=== PATIENT | male | born 1970 | race Caucasian/White ===

== ENCOUNTER 2022-02-01 10:40 | Inpatient (IN) | payer MEDICAID, SELFPAY ==
[2022-02-01] VITALS (11 sets, daily range): BP systolic 103–132; BP diastolic 57–78; PULSE 68–109; RESP 13–22; TEMP 36.1–36.6; O2SAT 97–100; BMI 21.4
--- NOTE | ~2022-02-01 | CT_ITS ---
EXAMINATION: CT brain wo con DATE: 02/01/2022 11:07 INDICATION: Seizure. TECHNIQUE: Computed tomography (CT) of the head was performed without intravenous contrast. The mA wa s adjusted according to patient size. Iterative reconstruction technique was employed. The dose-lengt h product was 605.33 mGy-cm. COMPARISON: None FINDINGS: There is an old infarct in left thalamus. There is an old infarct involving left frontal lo be and left insula. There is no intracranial hemorrhage, acute infarction, or abnormal intracranial m ass lesion. The ventricles are normal in size. There is mucosal thickening in the paranasal sinuses. The mastoid air cells are normal. The orbits are normal. IMPRESSION: 1. Old infarcts involving the left thalamus, left frontal lobe, and left insula. Reviewed, dictated and finalized at location A. IMPRESSION: 1. Old infarcts involving the left thalamus, left frontal lobe, and left insula .
--- NOTE | ~2022-02-01 | XR_ITS ---
EXAMINATION: XR chest 2V DATE: 02/01/2022 11:10 INDICATION: Seizure. TECHNIQUE: Frontal and lateral views of the chest were obtained. COMPARISON: None. FINDINGS: A calcified right lung nodule is consistent with old granulomatous disease. There are lucen cies at the lung apices, consistent with emphysema. There is mild scarring at the lung apices. No ple ural effusion or pneumothorax. The heart size is normal. There are changes of aortic valve replacemen t. IMPRESSION: 1. Emphysema. Reviewed, dictated and finalized at location A. IMPRESSION: 1. Emphysema.
--- NOTE | ~2022-02-01 | CT_ITS ---
EXAMINATION: CTA chest PE protocol DATE: 02/01/2022 12:37 INDICATION: New onset seizure TECHNIQUE: Computed tomography angiography (CTA) of the chest was performed with 100 mL Omnipaque-350 intravenous contrast timed to evaluate the pulmonary arteries. Coronal maximum intensity projection 3D-reconstructions were created by the technologist. The dose-length product (DLP) was 204.53 mGy-cm. Automated exposure control and iterative reconstruction technique were employed. COMPARISON: None. FINDINGS: The pulmonary arteries are well-opacified. No pulmonary embolism is identified. Respiratory motion slightly limits evaluation in the lower lung zones. There are changes of aortic valve replace ment. The heart size is normal. There is fusiform enlargement of the ascending aorta which measures 3 .9 cm at the level of the main pulmonary artery. No pleural effusion or pneumothorax. The lungs are f ree of acute opacities. IMPRESSION: 1. No pulmonary embolism or acute cardiopulmonary abnormality. Reviewed, dictated and finalized at location B.
--- NOTE | 2022-02-01 10:49 | ECG_ITS ---
Measurements Intervals [place] Rate: 97 P: 73 NM: 144 QRS: -29 QRSD: 86 T: 72 QT: 353 QTc: 449 Interpretive Statements SINUS RHYTHM POSSIBLE LEFT ATRIAL ENLARGEMENT RSR' IN V1 OR V2, PROBABLY NORMAL VARIANT INFERIOR INFARCT, AGE INDETERMINATE ABNORMAL ECG NO PREVIOUS ECG AVAILABLE FOR COMPARISON Electronically Signed On 02-01-2022 12:38:20 CDT by Akbar Monsivais D.O.
--- NOTE | 2022-02-01 10:53 | ED.SEIZURE ---
HPI - Seizure General Chief Complaint: Seizure Stated Complaint: ?seizure like activity Time Seen by Provider: 02/01/22 10:41 History of Present Illness HPI Narrative: 51-year-old male history of schizophrenia and medication noncompliance presents to the emergency room for evaluation of a new onset seizure. Patient was brought to the ER via EMS. On presentation, patient was alert and oriented x3. States that he was uncertain as to how he ended up in the library. Patient is also accompanied by a family. Family states the patient has a schizophrenia, with, and a delusion that the [place] cartel is out to get him. Family also states patient is homeless and will occasionally sleep in the library during the day. Patient denies any known drug or alcohol use. Patient and family does endorse a cardiac history, but it is unknown at this time what the condition is. Related Data Allergies Allergy/AdvReac Type Severity Reaction Status Date / Time No Known Allergies Allergy Verified 02/01/22 10:52 Review of Systems Review of Systems: CONSTITUTIONAL: Denies fever, chills, or sweats. EYES: Denies visual changes, redness, or discharge. ENT: Denies rhinorrhea, congestion, sore throat, or otalgia. CARDIOVASCULAR: Denies chest pain, palpitations, or edema. RESPIRATORY: Denies cough or dyspnea. GASTROINTESTINAL: Denies abdominal pain, nausea, vomiting, or diarrhea. GENITOURINARY: Denies dysuria or hematuria. SKIN: Denies rash or itching. MUSCULOSKELETAL: Denies back pain, joint pain, or myalgia. NEUROLOGIC: Denies headache, numbness, dizziness, or weakness. PSYCHIATRIC: Denies anxiety or depression. Exam Narrative: GENERAL: Well-appearing, well-nourished, no physical limitations, and in no acute distress. HEAD: Normocephalic, atraumatic. EYES: Conjunctivae normal, PERRLA and EOMI. CHEST: Clear to auscultation. No respiratory distress. No wheezes rales or rhonchi. No tenderness. HEART: Tachycardic and regular rhythm. No murmur heard. Normal peripheral pulses. ABDOMEN: Soft, nontender, nondistended, normal active bowel sounds. EXTREMITIES: Normal range of motion. No edema. No clubbing or cyanosis SKIN: Warm, dry, no rash. No noted wounds NEURO: No focal deficits. Alert and oriented x3. MAEW. CN's II-XI intact bilaterally, normal gait PSYCH: Cooperative. Normal mood and affect. Course Course Emergency Course: 1315: Case with Dr. Keita. He wants patient admitted to medical bed observation for an EEG. Vital Signs Vital signs: Vital Signs Temperature 36.6 C 02/01/22 10:46 Pulse Rate 104 H 02/01/22 10:46 Respiratory Rate 15 02/01/22 10:46 Blood Pressure 124/78 02/01/22 10:46 Pulse Oximetry 100 02/01/22 10:46 Temperature 36.6 C 02/01/22 10:46 Pulse Rate 68 02/01/22 13:23 Respiratory Rate 13 02/01/22 13:23 Blood Pressure 120/63 02/01/22 13:23 Pulse Oximetry 100 02/01/22 13:23 MDM - Seizure Lab Data Result diagrams: 02/01/22 10:57 02/01/22 10:57 Labs: Lab Results 02/01/22 02/01/22 02/01/22 Range/Units 10:57 10:57 10:57 WBC 6.2 (4.5-10.0) K/mm3 RBC 4.98 (4.6-6.20) M/mm3 Hgb 14.9 (14.0-18.0) g/dL Hct 44.7 (42.0-52.0) % MCV 89.8 (80-100) fl MCH 29.9 (26-34) pg MCHC 33.3 (32-36) g/dl RDW 13.2 (11.5-14.5) % Plt Count 250 (150-375) k/mm3 MPV 9.9 (7.4-10.4) fl Immature Gran % (Auto) 0.2 (0-0.5) % Neut % (Auto) 59.7 (45.5-73.1) % Lymph % (Auto) 28.2 (18.3-44.2) % [place] % (Auto) 7.4 (2.6-8.5) % Eos % (Auto) 3.4 (0-4.4) % Baso % (Auto) 1.1 (0.2-1.2) % Lymph # (Auto) 1.76 (0.9-3.2) K/mm3 [place] # (Auto) 0.5 (0.1-0.6) K/mm3 Eos # (Auto) 0.2 (0-0.3) K/mm3 Baso # (Auto) 0.1 (0.0-0.1) K/mm3 Abs Immat Gran (auto) 0.01 (0.00-0.031) K/mm3 Absolute Neuts (auto) 3.7 (1.3-6.7) K/mm3 Absolute Nucleated RBC 0.0 (0.0-0.012) K/mm3 Nucleated RBC % 0.0 (0.0-0.2) %
[2022-02-01 11:11] LABS: Basophils Absolute Auto 0.1 K/mm3 (0.0-0.1); Basophils Percent Auto 1.1 % (0.2-1.2); Eosinophils Absolute Auto 0.2 K/mm3 (0-0.3); Eosinophils Percent Auto 3.4 % (0-4.4); Hematocrit 44.7 % (42.0-52.0); Hemoglobin 14.9 g/dL (14.0-18.0); Immature Granulocyte Absolute 0.01 K/mm3 (0.00-0.031); Immature Granulocyte Percent A 0.2 % (0-0.5); Lymphocytes Absolute Auto 1.76 K/mm3 (0.9-3.2); Lymphocytes Percent Auto 28.2 % (18.3-44.2); Mean Corpuscular HGB Conc 33.3 g/dl (32-36); Mean Corpuscular Hemoglobin 29.9 pg (26-34); Mean Corpuscular Volume 89.8 fl (80-100); Mean Platelet Volume 9.9 fl (7.4-10.4); Monocytes Absolute Auto 0.5 K/mm3 (0.1-0.6); Monocytes Percent Auto 7.4 % (2.6-8.5); Neutrophils Absolute Auto 3.7 K/mm3 (1.3-6.7); Neutrophils Percent Auto 59.7 % (45.5-73.1); Platelet Count Result 250 k/mm3 (150-375); Red Blood Count 4.98 M/mm3 (4.6-6.20); Red Cell Distribution Width 13.2 % (11.5-14.5); White Blood Count 6.2 K/mm3 (4.5-10.0)
[2022-02-01] MEDS: SODIUM CHLORIDE 0.9% IV 1,000 ML 999 ML IV CONT (11:18)
[2022-02-01] MEDS: LORazepam INJ (*CRX) 2 MG/ML VIAL 0.5 MG IV PUSH (11:18)
[2022-02-01 11:25] LABS: Prothrombin Time 13.2 Seconds (11.1-14.7)
[2022-02-01 11:26] LABS: Partial Thromboplastin Time 24.9 SECONDS (22.3-36.8)
[2022-02-01 11:35] LABS: D Dimer 0.69 ug/mL (<0.48)
[2022-02-01 11:52] LABS: Acetaminophen < 10 ug/mL (10-30); Ethanol < 10 mg/dL (<10); Salicylate < 1.0 mg/dL (2-20)
[2022-02-01 12:04] LABS: Troponin I 0.013 ng/mL (0.000-0.034)
[2022-02-01 12:15] LABS: Albumin Level 4.8 g/dL (3.5-5.1); Alkaline Phosphatase 45 U/L (38-126); Anion Gap 23 mmol/L (8-16); Aspartate Amino Transferase 35 U/L (17-59); Bilirubin,Total 0.5 mg/dL (0.2-1.3); Blood Urea Nitrogen 7 mg/dL (9-20); Calcium 9.4 mg/dL (8.4-10.2); Carbon Dioxide 14 mmol/L (22-30); Chloride 104 mmol/L (98-107); Estimated CRCL calculation 59 ml/min; Estimated Glomerular Filt Rate 59; Glucose 143 mg/dL (65-110); Potassium 4.8 mmol/L (3.4-5.0); Sodium 141 mmol/L (137-145)
[2022-02-01 12:43] LABS: Appearance Urine Clear (Clear); Bilirubin Urine Negative (Negative); Blood Urine Negative (Negative); Color Urine Yellow (Yellow); Glucose Urine UA Negative (Negative); Ketones Urine Negative (Negative); Leukocyte Esterase Ur Negative LEU/UL (Negative); Nitrate Urine Negative (Negative); Protein Urine Trace mg/dL (Negative); Specific Grav Ur 1.015 (1.001-1.035); Urobilinogen Urine 0.2 mg/dL (<2.0)
[2022-02-01 12:49] LABS: Alanine Aminotransferase 36 U/L (6-50)
[2022-02-01 12:51] LABS: Mucus Urine Rare /lpf; RBC Urine 0-2 /hpf (0-2); WBC Urine 0-3 /hpf
[2022-02-01 12:57] LABS: Amphetamine Screen Urine Negative (Negative); Barbiturate Screen Urine Negative (Negative); Benzodiazepines Screen Urine Negative (Negative); Cannabinoid Screen Urine Negative (Negative); Cocaine Screen Urine Negative (Negative); Methadone Screen Urine Negative (Negative); Opiate Screen Urine Negative (Negative); Phencyclidine Screen Urine Negative (Negative)
[2022-02-01 13:06] LABS: Add Urine Microscopic? YES
[2022-02-01] MEDS: levETIRAcetam 1000MG/NACL100ML 1,000 MG/100 ML BAG 400 MG IVPB (13:24)
[2022-02-01 15:13] LABS: Troponin I 0.019 ng/mL (0.000-0.034)
--- NOTE | 2022-02-01 16:06 | PC.NURSE ---
Report received at 1605 on 02/01/22 with Malachi CONTRERAS. Patient will transfer to MRI before admitting to the floor.
--- NOTE | 2022-02-01 16:54 | ADMGEN ---
This patient, Cachorro Akhtar, was admitted to [facility] Surg Room 311-01. Patient/family oriented to hospital policies and general routines including ID bracelet, bed and alarms, visiting hours, pain management, procedures, bathroom and other care routines, personal items, smoking policy, room service/diet, and visiting hours. Information on how to activate the Rapid Response Team has been discussed. Patient/Family are encouraged to report perceived risks to care and to ask questions if they do not understand what they are told or what they should do.
--- NOTE | 2022-02-01 17:00 | PM.IMHP ---
H&P: HPI History of Present Illness Date/Time: 02/01/22 17:00 Chief Complaint: Witnessed seizure. Narrative: This is a 51-year-old male with schizophrenia and history mechanical aortic valve replacement who presented to the emergency department via EMS from the [facility] for evaluation after witnessed seizure. At the time my evaluation he is alert but is unable to provide an accurate history. He does not remember being at the library today nor does he remember the ride to the hospital. In fact I do not think even knows that he is in [place]; he perseverates on delusions of being chased by a [place] drug cartel. It is my understanding that he is from [facility] but was brought to the area to be closer to family members due to a decline in mental health related to schizophrenia. It sounds like he stays with his brothers sometimes though I think he spends time on the streets as well. He frequents the library and not long prior to arrival a bystander reports that he was sitting at a computer when he yelled out all of a sudden appeared to have seizure-like activity. On EMS arrival he was unresponsive, came to, and was postictal. Vital signs have been stable since arrival to the emergency department. Urine drug screen and toxicology screening were negative. Aside from a serum carbon dioxide level 14, his other labs were really unremarkable. It is my understanding that he is to be on Coumadin since his aortic valve replacement however his INR today was 1.0. It does not seem that he has been taking any of his medications. Brain CT did not show acute findings but did mention old infarcts involving left thalamus, left frontal lobe, and left insula. He has no knowledge of prior stroke. At the time my evaluation he does not really interact or answer direct questions, he perseverates on delusions as detailed above. He does specifically deny headache, visual changes, focal weakness, paresthesias, generalized pain, chest pain, and shortness of breath. Review of Systems Review of Systems: A review of systems is unable to be obtained accurately. He did not answer most of my questions but did say no to those listed in HPI. [facility] Past Medical History Medical History (Updated 02/01/22 @ 22:58 by Yanira He PA-C) Anxiety Cerebrovascular accident Old infarcts noted on brain CT on 02/01/2022. Schizophrenia Valvular heart disease Status post mechanical aortic valve replacement. Surgical History Surgical History (Updated 02/01/22 @ 22:51 by Yanira He PA-C) History of mechanical aortic valve replacement Family History Family History (Updated 02/01/22 @ 22:52 by Yanira He PA-C) Other Family history unknown Social History Social History (Updated 02/01/22 @ 22:53 by Yanira He PA-C) Social History: Surrogate medical decision maker: Dominick Pacheco (brother) or Traci Pacheco (sister in law). Code status: full code. Smoking status: Never smoker Alcohol intake: current Drinks per week: 1 Substance use: never Additional living arrangements comments: Recently moved to [place] from standing ago to be closer to family. 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 Spiritual care concerns: No Meds Home Medications and Allergies Home Medications Medication Instructions Recorded Confirmed Type No Home Medications 02/01/22 02/01/22 History Allergies Allergy/AdvReac Type Severity Reaction Status Date / Time No Known Allergies Allergy Verified 02/01/22 17:25 Vital Signs Vital Signs - 24 hr 02/01/22 10:46 02/01/22 10:47 02/01/22 11:24 Temperature 98 F Pulse Rate 104 H 109 H 85 Respiratory Rate 15 22 H 13 Blood Pressure 124/78 124/78 132/77 Pulse Oximetry 100 98 97 Oxygen Delivery 02/01/22 11:31 02/01/22 12:54 02/01/22 13:23 Temperature Pulse Rate 78 74 68 Respiratory Rate 14 19 13 Blood Pressure 127/73 123/74 120/63 Puls
[2022-02-01] MEDS: ENOXAPARIN 80 MG/0.8 ML SYRINGE 70 MG SUB-Q (23:35)
[2022-02-02 06:00] VITALS: BP 105/52; PULSE 61; RESP 20; TEMP 36.3; O2SAT 98
[2022-02-02 06:56] LABS: Hematocrit 39.7 % (42.0-52.0); Hemoglobin 13.2 g/dL (14.0-18.0); Mean Corpuscular HGB Conc 33.2 g/dl (32-36); Mean Corpuscular Hemoglobin 29.8 pg (26-34); Mean Corpuscular Volume 89.6 fl (80-100); Mean Platelet Volume 10.2 fl (7.4-10.4); Platelet Count Result 199 k/mm3 (150-375); Red Blood Count 4.43 M/mm3 (4.6-6.20); Red Cell Distribution Width 13.3 % (11.5-14.5); White Blood Count 6.9 K/mm3 (4.5-10.0)
[2022-02-02 07:11] LABS: Anion Gap 10 mmol/L (8-16); Blood Urea Nitrogen 8 mg/dL (9-20); Calcium 8.5 mg/dL (8.4-10.2); Carbon Dioxide 26 mmol/L (22-30); Chloride 104 mmol/L (98-107); Estimated CRCL calculation 67 ml/min; Estimated Glomerular Filt Rate > 60; Glucose 97 mg/dL (65-110); Magnesium 2.1 mg/dL (1.6-2.3); Potassium 3.9 mmol/L (3.4-5.0); Sodium 140 mmol/L (137-145)
[2022-02-02 07:39] LABS: Thyroid Stimulating Hormone Reflex 0.868 uIU/mL (0.465-4.68)
[2022-02-02] MEDS: ENOXAPARIN 80 MG/0.8 ML SYRINGE 70 MG SUB-Q (09:44)
--- NOTE | 2022-02-02 12:35 | WPDNEURCNPN ---
Assessment and Plan Assessment and plan (1) New onset seizure: Code(s): R56.9 - Unspecified convulsions Status: Acute Assessment and Plan: considering the history, he need to be on the preventive treatment for the stroke that is anticoagulation therapy but considering his mental status that needs to be supervised further discussion needs to be made with the family regarding long-term treatment and the follow-up if he is still here we would like to obtain the EEG and according (2) Schizophrenia: Code(s): F20.9 - Schizophrenia, unspecified Status: Acute (3) Valvular heart disease: Code(s): I38 - Endocarditis, valve unspecified Status: Acute Consult date: 02/02/22 Time Seen: 10:30 HPI: Cachorro Akhtar is a 51 year old male admitted to the hospital through the emergency room for the possibility of seizures ,he was brought to the emergency room by EMS in awake alert oriented x3 condition and with the explanation that he was uncertain how he ended up in the library, he was accompanied by his family members as well. Patient carries the diagnosis of schizophrenia with a delusion that [employer] is out to get him. as per the family he is homeless and occasionally sleeps in the library,patient himself denied use of any drugs or alcohol. He is not known to be allergic to any medication, initial physical examination in the emergency room was nonfocal with stable vital signs, the pulse rate of 104 pulse ox 100 CBC, normal BMP, normal the glucose 143, UA negative ,alcohol level less than 10 ,drug screen negative CT scan of the head with old infarct in the left thalamus left frontal lobe and left insula ,chest x-ray with emphysema, chest CTA negative, patient does have history of valvular heart disease and has undergone mechanical aortic valve replacement, is never a smoker but current alcohol intaker, also has a low air by profession do not currently work Review of Systems Review of Systems: All systems reviewed & are unremarkable except as noted in HPI and below PMFSH Past Medical History Medical History (Updated 02/01/22 @ 22:58 by Yanira He PA-C) Anxiety Cerebrovascular accident Old infarcts noted on brain CT on 02/01/2022. Schizophrenia Valvular heart disease Status post mechanical aortic valve replacement. Surgical History Surgical History (Updated 02/01/22 @ 22:51 by Yanira He PA-C) History of mechanical aortic valve replacement Family History Family History (Updated 02/01/22 @ 22:52 by Yanira He PA-C) Other Family history unknown Social History Social History (Updated 02/01/22 @ 22:53 by Yanira He PA-C) Social History: Surrogate medical decision maker: Dominick Wilsonjamie (brother) or Traci Junior (sister in law). Code status: full code. Smoking status: Never smoker Alcohol intake: current Drinks per week: 1 Substance use: never Additional living arrangements comments: Recently moved to [place] from [place] ago to be closer to family. 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 Spiritual care concerns: No Meds Home Medications and Allergies Home Medications Medication Instructions Recorded Confirmed Type No Home Medications 02/01/22 02/01/22 History Allergies Allergy/AdvReac Type Severity Reaction Status Date / Time No Known Allergies Allergy Verified 02/01/22 17:25 Vital Signs Vital Signs - 24 hr 02/01/22 12:54 02/01/22 13:23 02/01/22 14:23 Temperature Pulse Rate 74 68 72 Respiratory Rate 19 13 18 Blood Pressure 123/74 120/63 114/69 Pulse Oximetry 100 100 Oxygen Delivery 02/01/22 14:31 02/01/22 16:06 02/01/22 16:41 Temperature 36.1 C L Pulse Rate 70 71 77 Respiratory Rate 19 16 17 Blood Pressure 103/68 105/57 L 108/64 Pulse Oximetry 98 100 Oxygen Delivery 02/01/22 20:57 02/01/22 20:00 02/02/22 06:00 Temperature 36.5 C
--- NOTE | 2022-02-02 13:58 | PM.IMPN ---
Progress Note: A&P Assessment and Plan (1) New onset seizure: Code(s): R56.9 - Unspecified convulsions Status: Acute Assessment and Plan: - Witnessed episode. - Negative imaging thus far with CT of brain. - MRI ordered. - Dr. Keita following and managing. He suggests that patient be on anticoagulation for his high risk of CVA. However, pt. must have jail supervision to ensure that he is taking it appropriately. Care Coordination is consulted. - No anti-epileptic meds currently. (2) Valvular heart disease: Code(s): I38 - Endocarditis, valve unspecified Status: Acute Assessment and Plan: - Hx of AVR for endocarditis. Is supposed to take Coumadin, but says he hasn't had his meds as he is homeless. - His INR was subtherapeutic so he is being bridged with theraputic lovenox therapy. - Restart Coumadin tonight at 5 mg and check daily INR's while adjusting dose of Coumadin. - ECHO ordered. (3) Schizophrenia: Code(s): F20.9 - Schizophrenia, unspecified Status: Acute Assessment and Plan: - Unknown medications that patient is supposed to be taking and he doesn't know either. - Reports he hasn't taken them in a long time as he is homeless. - We have been unable to reach his family to verify information. - Care coordination is consulted to assist with case. Time Spent With Patient Time with patient: 15 - 25 minutes Subjective Date/time seen: 02/02/22 1120 Pt. was examined at bedside today. He has no complaints today of any pain, dyspnea and there has not been any further seizure activity. His Coumadin is ordered to be restarted today, and in the meantime we are bridging with Lovenox. Pt. believes that he is still be followed by a [place] Cartel and that he is here in the hospital for them trying to steal technology from him. I have been unable to reach patient's family and he is not a reliable source of information. He was brought after he was originally found having a seizure at the library yesterday. He is not sure what medications he is supposed to be taking, but admits that he hasn't taken any because he is homeless. SW consult is placed today. Pt. will be given a liter bolus for a soft BP of 90/52. Otherwise he has no CP, dyspnea, N/V/D. Review of Systems Review of Systems: All systems reviewed & are unremarkable except as noted in HPI and below Exam Const: General: comfortable and no acute distress HENMT: Mouth: Yes moist mucous membranes Eyes: General: appearance normal, both eyes and all related structures Neck: Neck: supple and no JVD Resp: Effort & Inspection: normal respiratory effort Auscultation: clear to auscultation bilaterally Cardio: Rate: regular rate Rhythm: regular rhythm Heart sounds: Murmur heart sound present (Loud Aortic murmur) GI: Inspection: non-distended GI Palp: Yes Soft to palpation, No Tenderness to palpation present (GI) and No Guarding due to palpation present (GI) Auscultation: normal bowel sounds Skin: General skin exam: normal color and no rashes or lesions noted Lesions: no lesions noted Rashes: no rashes noted Wounds: no wounds Neuro: General: gait normal Speech: normal speech Motor exam (neuro): 5/5 motor strength present throughout and Normal motor muscle tone present throughout Sensory Exam: normal sensation Other: Alert and oriented to self only. Extrem: General: normal to inspection, no edema and no pedal edema Psych: Mental Status: other (Confused, alert and oriented to self only.) Speech and movement: Normal speech and movement present Affect: normal affect Attitude: cooperative Thought process: Illogical thought process present (thinking that the [place] cartel is stealing his technology here @ hospital) Thought content: Yes Paranoid delusions present and Yes Hallucination(s) present Insight: Poor insight present (Psych) Judgement: Poor judgement present (Psych) Objective Data Vital Signs Vital Signs:
[2022-02-02 14:00] VITALS: BP 90/65; PULSE 62; RESP 14; TEMP 36.6; O2SAT 99
[2022-02-02] MEDS: SODIUM CHLORIDE 0.9% IV 1,000 ML 999 ML IV CONT (14:12)
[2022-02-02 14:58] LABS: INR 1.2; Prothrombin Time 14.2 Seconds (11.1-14.7)
[2022-02-02 15:36] VITALS: BP 110/64; O2SAT 99
--- NOTE | 2022-02-02 16:08 | PC.NURSE ---
The following history was provided by pt's family member who is coordinating information from various family/ex- to provide history/information regarding pt. Pt had a bicuspid aortic valve replacement in 2010 but it was botched. 2nd surgery for the mechanical valve currently in place in [address] [address], . Pt was supposed to be no blood thinners to achieve/maintain proper INR but was never compliant with medications, et al. Due to failure to maintain INR, pt developed a massive clot and was hospitalized with dire prognosis n July 2015. They were able to dissolve the clot, pt was released, but pt was never compliant with anticoagulant medications. Pt was involuntarily hospitalized in 2010 with a diagnosis of schizoaffective disorder. 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 Pt had been prescribed anti-psychotic meds but he was not compliant. Pt disappeared and was homeless since 2017 where it is largely unknown other than that there have been several involuntary psych holds over the years.
--- NOTE | 2022-02-02 16:15 | PC.NURSE ---
Pt's family member who is coordinating all communication and care, informed me that the family are trying to have guardianship legally established over pt with the intention of having him placed in long-term inpatient psychiatric care. She confirmed that pt is noncompliant with all meds, treatments, etc. She confirmed that pt has been homeless for quite some time. She confirmed that pt has a history of paranoia and delusions particularly with the one that the [place] drug cartel is after him and anyone around him is in danger thus why he needs to be homeless and always on the move. She also confirmed that pt has been spiraling downward for years and his mental health has been worsening for years.
[2022-02-02] MEDS: WARFARIN (*PBKC) 5 MG TABLET PO (17:36)
[2022-02-02 20:52] VITALS: BP 98/46; PULSE 62; RESP 16; TEMP 36.2; O2SAT 99
[2022-02-03 05:34] VITALS: BP 104/67; PULSE 54; RESP 16; TEMP 36.6; O2SAT 100
[2022-02-03] MEDS: risperiDONE 0.5 MG TABLET PO (11:35)
[2022-02-03] MEDS: WARFARIN (*PBKC) 7.5 MG TABLET PO (11:35)
--- NOTE | 2022-02-03 13:50 | PM.IMPN ---
Progress Note: A&P Assessment and Plan (1) New onset seizure: Code(s): R56.9 - Unspecified convulsions Status: Acute Assessment and Plan: - Witnessed episode. - CT of brain demonstrates three areas of the brain that have areas of old, chronic infarct. - MRI ordered. - EEG ordered. - Dr. Keita following and managing. He suggests that patient be on anticoagulation for his high risk of CVA. However, pt. must have retirement supervision to ensure that he is taking it appropriately. Care Coordination is consulted. - No anti-epileptic meds currently. (2) Valvular heart disease: Code(s): I38 - Endocarditis, valve unspecified Status: Acute Assessment and Plan: - Hx of AVR for endocarditis. Is supposed to take Coumadin, but says he hasn't had his meds as he is homeless. He today tells me that Coumadin changed his personality. - His INR was subtherapeutic, so he was being bridged with Lovenox. However, pt. is refusing it and he also refused last evening's dose of coumadin as noted above. - INR is 1.0 today. I had a lengthy discussion with pt. regarding the need for coumadin, it's mechanism of action and the risks vs benefits of not taking it. He is agreeable to taking today. Will recheck INR in the AM and adjust daily dose. - ECHO ordered and pending. (3) Schizophrenia: Code(s): F20.9 - Schizophrenia, unspecified Status: Acute Assessment and Plan: - Unknown medications that patient is supposed to be taking and he doesn't know either. - Reports he hasn't taken them in a long time as he is homeless. - We have been unable to reach his family to verify information. - Care coordination is consulted to assist with case. - Psych was consulted. See HPI for in depth discussion and plan. Labs and Mini mental are ordered. Time Spent With Patient Time with patient: Greater than 35 minutes Subjective Date/time seen: 02/03/22 1015 Patient was evaluated and has no new complaints. He seems much more alert today and answers questions appropriate manner. He is able to conversation level I to reach his family again today spoke with his brother, Dominick who is actually his cousin but was raised with the patient. He was able to give more information about the patient and with his concerns. 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 He reports that patient has been twice and has 2 ex-wives with 2 sons named Terry and Mike 1 from each . Patient does not drink, smoke or use any illicit drugs. Patient's mother is Malia and she lives in [facility] and her phone number is [phone]. Check indicates that at some point during his 2nd marriage patient began to act erratically and was unable to care for his son prompting his ex- to file for divorce and custody of his son. He then says patient went off the deep end withdrew 3,000,000 dollars worth a savings and was driving back and forth across the country staying in random hotels in random places. Patient became very paranoid in appearance to his family and talk notes that each place he stopped the patient would buy a new laptop computer, and new cell phone and when he left that site he would leave all belongings behind. He states eventually he ended up in [place] and had exhausted all of his funds and which point he stayed in a nursing home and while there he was evaluated by a psychiatrist and received Risperdal. For the amount of time that patient was on Risperdal checks said that his mentation improved and he was acting like they were normal family member. He did however at some point stopped taking Risperdal and once again disappeared and is now living on the streets homeless with no money and no car. He was unable to give me the exact time of when patient
[2022-02-03 14:00] VITALS: BP 115/66; PULSE 64; RESP 20; TEMP 36.9; O2SAT 100
[2022-02-03 14:26] LABS: Hepatitis B Surface Antigen Negative (Negative)
[2022-02-03 14:31] LABS: HAV RESULT Negative (Negative); Hepatitis B Core IgM Result Negative (Negative)
[2022-02-03 14:34] LABS: HIV 1/2 Ab P24 Ag Result Negative (Negative)
[2022-02-03 14:43] LABS: Hepatitis C Virus Antibody Negative (Negative)
--- NOTE | 2022-02-03 20:42 | WPDCNPSYCH ---
HPI Data of Consult Date/Time: 02/03/22 20:42 Requesting Physician: LANRE Parish Primary Care Provider: FIRE SAFETY MANAGER PHYSICIAN Consult Narrative Narrative: Diagnoses: Unspecified schizophrenia Pharmacologic noncompliance Homelessness Discussion: The patient presents with paranoid delusions of [place] teams somehow conspiring against him; and that he is in some way working in service of the [employer] the [employer]. His speech does disorganize at times. His symptoms date back to around 2010 following heart surgery. Schizophrenia is high in the differential diagnosis; however with schizophrenia its onset tends to be an early adulthood and not in one's late 30s or early 40s. The association with having had heart surgery and with a finding of having had at least 3 cerebrovascular accidents of uncertain age might possibly be a finding of a psychotic vascular dementia that may have had some manifestations years ago. In either event, the patient has responded well to the use of risperidone all in the past according to his surrogate decision maker named Dominick. The patient has agreed to use risperidone tentatively. The patient is reluctant to allow the use of anticoagulation because he fears that in some way a team of Mexicans are involved in undermining him because of his use of anticoagulation. Hopefully with the use of risperidone progressing to Invega Sustenna, the patient's paranoid delusion may be adequately resolved that he will allow the use of anticoagulation. Plan: Risperdal 1mg p.o. b.i.d. for the target symptom of psychosis Haldol IV and Ativan IV will be discontinued because they are not judged to be needed. Also, if Haldol or Ativan become indicated the IV route will be avoided because of the Diederich stabilizing affects on vital signs that IV Haldol and/or Ativan can introduce. Lipid panel will be obtained to determine a baseline lipid study set because anti psychotics are sometimes associated with increases and lipid panel findings. The patient is undergoing additional neurological evaluation including an MRI, EEG and a mini-mental status exam. Coincidentally an echocardiogram is also pending. Care coordination consult for a biopsychosocial evaluation to include a family member and pillowcase cleaner as 2 of his historians will be ordered. Care coordination consult for possible skilled care placement following hospitalization will also be pursued. The patient feels safe from the Ukrainian teams as long as he is in some sort of a facility such as [facility]. Care coordination consult to obtain documentation of the patient's surrogate decision maker authority. Please attach this documentation to the patient's chart. Chief complaint/reason for hospitalization/reason for consultation: Patient is a 51-year-old gentleman admitted to the medicine service for new onset seizure like spell with psychiatric consultation for psychosis in the context of pharmacologic noncompliance and homelessness. History of present illness: The patient's nurse practitioner, the patient, and the chart served as the principal historians. EMS report: Patient was found initially unresponsive. Bystander said that he was at his computer in the library when he yelled out and appeared to have a seizure. Library staff reported that he has a close family friend who left emergency contact information with library staff in case the patient had any issues with his schizophrenia. An IV was placed in the ambulance. The patient eventually became responsive during transport but was confused and pulled out his IV. Nurse practitioner report: Patient was brought to the emergency department from a library for a witnessed seizure-like spell. He was noted to be acting bizarrely. He has been paranoid refusing to take anti coagulation in the context of an aortic valve replacement and having had 3 cerebrovascular accidents identified on CT of the b
[2022-02-03] MEDS: ENOXAPARIN 80 MG/0.8 ML SYRINGE 70 MG SUB-Q (21:50)
[2022-02-03] MEDS: risperiDONE 1 MG TABLET PO (21:50)
[2022-02-03 22:00] VITALS: BP 102/56; PULSE 54; RESP 19; TEMP 36.6; O2SAT 99
[2022-02-03 22:05] LABS: Cholesterol 158 mg/dL (0-200); HDL Direct 46 mg/dL; Triglycerides 155 mg/dL (<150)
[2022-02-03 22:16] LABS: LDL Cholesterol Direct 78 mg/dL
--- NOTE | 2022-02-04 | ECHO_ITS ---
Patient Info Name: Cachorro Akhtar Age: 51 years : 1970 Gender: Male Ht: 70 in Wt: 149 lbs BSA: 1.82 m2 HR: 56 bpm BP: 102 / 56 mmHg Heart Rhythm: Sinus Rhythm, Bradycardia Exam Date: 02/04/2022 12:54 PM Exam Location: [facility] Pulmonary Patient Status: Inpatient Admit Date: 02/03/2022 Staff Ordering Physician: Yanira He PA-C Commercial Lines Manager: Malachi Webb RDCS, RT Attending Provider: Suzanne Burrows Referring Physician: Neri HALL; Exam Type: CA echo doppler color flow Study Info Indications I35.0 - Nonrheumatic aortic (valve) stenosis Z95.2 - Presence of prosthetic heart valve Complete two-dimensional, color flow and Doppler transthoracic echocardiogram is performed. Strain analysis performed. Summary 1. Left ventricular chamber dimension is normal. 2. Left ventricular systolic function is hyperdynamic, estimated at >70%. 3. There is mildly increased left ventricular wall thickness. 4. The left ventricular diastolic function is grade II diastolic dysfunction. 5. Global longitudinal strain is abnormal at -18 %. 6. 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 Suspected mechanical prosthesis, but cannot be further characterized. Consider SOY for further evaluation. 7. There is mild regurgitation of the prosthetic aortic valve. 8. Prosthetic valve in the aortic position is not well visualized. 9. Recommend transesophageal echocardiogram. Recommendations * Recommend transesophageal echocardiogram. Left Ventricle Left ventricular chamber dimension is normal. Left ventricular systolic function is hyperdynamic, estimated at >70%. There is mildly increased left ventricular wall thickness. The left ventricular diastolic function is grade II diastolic dysfunction. Global longitudinal strain is abnormal at -18 %. Right Ventricle Right ventricular chamber dimension is normal. Right ventricular systolic function is normal. Left Atria Left atrial chamber dimension is normal. Right Atria Right atrial chamber dimension is normal. 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 Suspected mechanical prosthesis, but cannot be further characterized. Consider SOY for further evaluation. Prosthetic valve in the aortic position is not well visualized. There is mild regurgitation of the prosthetic aortic valve. Pulmonic Valve The pulmonic valve is not well visualized. There is mild pulmonic regurgitation. Mitral Valve The mitral valve has normal leaflets. There is trace mitral valve regurgitation. Tricuspid Valve The tricuspid valve leaflets are normal. There is trace tricuspid valve regurgitation. Unable to estimate PA systolic pressure due to poor spectral resolution of tricuspid regurgitant jet velocity. Pericardium/Pleural The pericardium appears normal. There is no pericardial effusion. Inferior Vena Cava Normal inferior vena cava with >50% collapse upon inspiration consistent with normal right atrial pressure, 5 mmHg. Aorta The aortic root size at the sinus of Valsalva is normal. Left Ventricular Outflow Tract Name Value Normal
[2022-02-04 06:00] VITALS: BP 120/57; PULSE 50; RESP 20; TEMP 36.5; O2SAT 99
[2022-02-04 06:12] LABS: Basophils Percent Auto 0.5 % (0.2-1.2); Eosinophils Absolute Auto 0.2 K/mm3 (0-0.3); Eosinophils Percent Auto 3.8 % (0-4.4); Hematocrit 38.8 % (42.0-52.0); Immature Granulocyte Absolute 0.01 K/mm3 (0.00-0.031); Immature Granulocyte Percent A 0.2 % (0-0.5); Lymphocytes Absolute Auto 1.97 K/mm3 (0.9-3.2); Lymphocytes Percent Auto 33.8 % (18.3-44.2); Mean Corpuscular HGB Conc 33.5 g/dl (32-36); Mean Corpuscular Hemoglobin 29.5 pg (26-34); Mean Corpuscular Volume 88.2 fl (80-100); Mean Platelet Volume 10.2 fl (7.4-10.4); Monocytes Absolute Auto 0.8 K/mm3 (0.1-0.6); Monocytes Percent Auto 13.6 % (2.6-8.5); Neutrophils Absolute Auto 2.8 K/mm3 (1.3-6.7); Neutrophils Percent Auto 48.1 % (45.5-73.1); Platelet Count Result 197 k/mm3 (150-375); Red Cell Distribution Width 12.9 % (11.5-14.5); White Blood Count 5.8 K/mm3 (4.5-10.0)
[2022-02-04 06:19] LABS: INR 1.2; Prothrombin Time 15.1 Seconds (11.1-14.7)
[2022-02-04 06:29] LABS: Alanine Aminotransferase 17 U/L (6-50); Albumin Level 3.6 g/dL (3.5-5.1); Alkaline Phosphatase 45 U/L (38-126); Anion Gap 10 mmol/L (8-16); Aspartate Amino Transferase 41 U/L (17-59); Bilirubin,Total 0.2 mg/dL (0.2-1.3); Blood Urea Nitrogen 9 mg/dL (9-20); Calcium 8.3 mg/dL (8.4-10.2); Carbon Dioxide 28 mmol/L (22-30); Chloride 104 mmol/L (98-107); Estimated CRCL calculation 74 ml/min; Estimated Glomerular Filt Rate > 60; Glucose 102 mg/dL (65-110); Potassium 3.4 mmol/L (3.4-5.0); Sodium 142 mmol/L (137-145)
[2022-02-04] MEDS: risperiDONE 1 MG TABLET PO ×2 (09:04→20:25)
[2022-02-04] MEDS: ENOXAPARIN 80 MG/0.8 ML SYRINGE 70 MG SUB-Q ×2 (09:04→20:25)
--- NOTE | 2022-02-04 09:22 | WPDNEUROLOGY ---
Neurology EEG Report General Information Date of Study: 02/04/22 TEST eeg DIAGNOSIS new onset seizure CONDITION OF RECORDING Awake drowsy and sleep EEG NUMBER [id number] CLINICAL HISTORY patient lost consciousness couple of days ago. Elodia is he had heart surgery and is supposed to be on blood thinner and had not been taking it. EEG DESCRIPTION Very minimal amount of poorly organized low voltage 11 to 13 hertz per 2nd alpha is seen posteriorly during wakefulness. Low-voltage beta activity seen during drowsiness. Bilateral symmetrical sleep activity seen during sleep. Hyperventilation not done. Photic stimulation not done. Non paroxysmal. Nonfocal. Nonlateralizing. IMPRESSION Normal record
--- NOTE | 2022-02-04 11:42 | PM.IMPN ---
Progress Note: A&P Assessment and Plan (1) New onset seizure: Code(s): R56.9 - Unspecified convulsions Status: Acute Assessment and Plan: - Witnessed episode. - CT of brain demonstrates three areas of the brain that have areas of old, chronic infarct. - MRI unable to be performed as patient has a mechanical heart valve. - EEG performed and negative. - Dr. Keita following and managing. He suggests that patient be on anticoagulation for his high risk of CVA. However, pt. must have halfway supervision to ensure that he is taking it appropriately. Care Coordination is consulted. - No anti-epileptic meds currently. - Seizure precautions remain in place, however, he has not had any seizure activity during this hospitalization. - If any seizure activity, must draw a prolactin level within 20 minutes. (2) Valvular heart disease: Code(s): I38 - Endocarditis, valve unspecified Status: Acute Assessment and Plan: - Hx of AVR for endocarditis. Is supposed to take Coumadin, but says he hasn't had his meds as he is homeless. He today tells me that Coumadin changed his personality. - His INR was subtherapeutic, so he was being bridged with Lovenox. However, pt. is refusing it and he also refused last evening's dose of coumadin as noted above. - INR is 1.2 today. I had a lengthy discussion with pt. yesterday regarding the need for coumadin, it's mechanism of action and the risks vs benefits of not taking it. He agreed to take it and did take 7.5 mg. 10 mg to be taken today. Will recheck INR in the AM and adjust daily dose. - ECHO ordered and pending. (3) Schizophrenia: Code(s): F20.9 - Schizophrenia, unspecified Status: Acute Assessment and Plan: - Unknown medications that patient is supposed to be taking and he doesn't know either. - Reports he hasn't taken them in a long time as he is homeless. - We have been unable to reach his family to verify information. - Care coordination is consulted to assist with case. - Psych was consulted. See HPI for in depth discussion and plan. Labs and Mini mental are ordered. - Dr. Bailey evaluated patient last evening. Please see his plan from his note for treatment. Time Spent With Patient Time with patient: 15 - 25 minutes Subjective Date/time seen: 02/04/22 1000 This pt. was examined at the bedside today in interval assessment. He has no pain and he is comfortable. He did allow Psychiatry to speak with him last night. He is still awaiting ECHO and his EEG performed today was normal. He cannot have an MRI as he has a mechanical heart valve. Pt's INR this AM is still low at 1.2. He is still agreeable to taking his Coumadin currently and his dose for tonight is increased to 10.0. We will repeat INR in the AM. Review of Systems Review of Systems: All systems reviewed & are unremarkable except as noted in HPI and below Exam Const: General: comfortable and no acute distress Other: More alert, easily conversable today. HENMT: General nose exam: Normal nares present and no epistaxis Mouth: Yes moist mucous membranes Eyes: General: appearance normal, both eyes and all related structures Neck: Neck: supple and no JVD Lymphatic: lymphadenopathy not noted Resp: Effort & Inspection: normal respiratory effort Auscultation: clear to auscultation bilaterally Cardio: Rate: regular rate Rhythm: regular rhythm Heart sounds: no gallops, Murmur heart sound present (Mechanical valve murmur. ) systolic and no rubs GI: Inspection: non-distended Auscultation: normal bowel sounds Other: Appears flat Skin: General skin exam: normal color, no rashes or lesions noted and no erythema Lesions: no lesions noted Rashes: no rashes noted Wounds: no wounds Neuro: General: gait normal Speech: normal speech Motor exam (neuro): 5/5 motor strength present throughout and Normal motor muscle tone present throughout Sensory Exam: normal sensation Other: Alert and orie
[2022-02-04 13:48] LABS: Rapid Plasma Reagin Non-Reactive (NonReactive)
[2022-02-04 14:00] VITALS: BP 106/63; PULSE 50; RESP 16; TEMP 36.4; O2SAT 97
[2022-02-04] MEDS: WARFARIN (*PBKC) 10 MG TABLET PO (17:11)
[2022-02-04 22:00] VITALS: BP 113/66; PULSE 69; RESP 18; TEMP 36.6; O2SAT 100
[2022-02-05 06:00] VITALS: BP 118/64; PULSE 70; RESP 18; TEMP 36.6; O2SAT 100
[2022-02-05 06:53] LABS: Basophils Absolute Auto 0.1 K/mm3 (0.0-0.1); Basophils Percent Auto 1.2 % (0.2-1.2); Eosinophils Absolute Auto 0.3 K/mm3 (0-0.3); Eosinophils Percent Auto 7.5 % (0-4.4); Hematocrit 40.4 % (42.0-52.0); Hemoglobin 13.6 g/dL (14.0-18.0); Lymphocytes Absolute Auto 1.16 K/mm3 (0.9-3.2); Lymphocytes Percent Auto 27.9 % (18.3-44.2); Mean Corpuscular HGB Conc 33.7 g/dl (32-36); Mean Corpuscular Hemoglobin 29.9 pg (26-34); Mean Corpuscular Volume 88.8 fl (80-100); Mean Platelet Volume 10.4 fl (7.4-10.4); Monocytes Absolute Auto 0.5 K/mm3 (0.1-0.6); Monocytes Percent Auto 12.7 % (2.6-8.5); Neutrophils Absolute Auto 2.1 K/mm3 (1.3-6.7); Neutrophils Percent Auto 50.7 % (45.5-73.1); Platelet Count Result 185 k/mm3 (150-375); Red Blood Count 4.55 M/mm3 (4.6-6.20); Red Cell Distribution Width 13.2 % (11.5-14.5); White Blood Count 4.2 K/mm3 (4.5-10.0)
[2022-02-05 07:04] LABS: INR 1.5; Prothrombin Time 17.5 Seconds (11.1-14.7)
[2022-02-05] MEDS: risperiDONE 1 MG TABLET PO ×2 (08:38→20:18)
[2022-02-05] MEDS: ENOXAPARIN 80 MG/0.8 ML SYRINGE 70 MG SUB-Q ×2 (08:38→20:18)
[2022-02-05 10:07] LABS: Alanine Aminotransferase 26 U/L (6-50); Albumin Level 3.6 g/dL (3.5-5.1); Alkaline Phosphatase 38 U/L (38-126); Anion Gap 7 mmol/L (8-16); Aspartate Amino Transferase 57 U/L (17-59); Bilirubin,Total 0.3 mg/dL (0.2-1.3); Blood Urea Nitrogen 8 mg/dL (9-20); Calcium 8.8 mg/dL (8.4-10.2); Carbon Dioxide 29 mmol/L (22-30); Chloride 104 mmol/L (98-107); Estimated CRCL calculation 74 ml/min; Estimated Glomerular Filt Rate > 60; Glucose 99 mg/dL (65-110); Magnesium 1.8 mg/dL (1.6-2.3); Potassium 3.7 mmol/L (3.4-5.0); Sodium 140 mmol/L (137-145)
--- NOTE | 2022-02-05 12:40 | PM.IMPN ---
Progress Note: A&P Assessment and Plan (1) New onset seizure: Code(s): R56.9 - Unspecified convulsions Status: Acute Assessment and Plan: - Witnessed episode. - CT of brain demonstrates three areas of the brain that have areas of old, chronic infarct. - MRI unable to be performed as patient has a mechanical heart valve. - EEG performed and negative. - Dr. Keita following and managing. He suggests that patient be on anticoagulation for his high risk of CVA. However, pt. must have prison supervision to ensure that he is taking it appropriately. Care Coordination is consulted. - No anti-epileptic meds currently. - Seizure precautions remain in place, however, he has not had any seizure activity during this hospitalization. - If any seizure activity, must draw a prolactin level within 20 minutes. (2) Valvular heart disease: Code(s): I38 - Endocarditis, valve unspecified Status: Acute Assessment and Plan: - Hx of AVR for endocarditis. Is supposed to take Coumadin, but says he hasn't had his meds as he is homeless. He today tells me that Coumadin changed his personality. - His INR was subtherapeutic, so he was being bridged with Lovenox. However, pt. is refusing it and he also refused last evening's dose of coumadin as noted above. - INR is 1.2 today. I had a lengthy discussion with pt. yesterday regarding the need for coumadin, it's mechanism of action and the risks vs benefits of not taking it. He agreed to take it and did take 7.5 mg. 10 mg to be taken today. Will recheck INR in the AM and adjust daily dose. - ECHO Was performed and demonstrates a hyperdynamic left ventricular systolic function with EF >70%. He does have a grade 2 diastolic dysfunction. 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 There is again a statement that the prosthetic valve in the aortic position is not well visualized and a SOY is recommended. (3) Schizophrenia: Code(s): F20.9 - Schizophrenia, unspecified Status: Acute Assessment and Plan: - Unknown medications that patient is supposed to be taking and he doesn't know either. - Reports he hasn't taken them in a long time as he is homeless. - We have been unable to reach his family to verify information. - Care coordination is consulted to assist with case. - Psych was consulted. See HPI for in depth discussion and plan. Labs and Mini mental were performed. - Dr. Bailey evaluated patient last evening. Please see his plan from his note for treatment. Time Spent With Patient Time with patient: 25 - 35 minutes Subjective Date/time seen: 02/05/22 0735 This pt. was examined today in interval assessment. He has no complaints and his assessment is unchanged with regards to general health. He has not had any seizure activity. I talked with him today about his plans for post-discharge and where he will likely reside when he is discharged. He tells me that he will likely remain homeless. When asked about living with family, Dominick, for example, he states that We try to work together and we have an overall good time together. He never did say he would be agreeable to staying with a family member. I asked him about a homeless longterm and he stated he did not want to go there, that he would likely return to the streets and try to make his way to [place] again where he used to live. His INR this morning is 1.5. He will receive another 10 mg of Coumadin tonight to further increase the INR and we will recheck in AM. Review of Systems Review of Systems: All systems reviewed & are unremarkable except as noted in HPI and below Exam Const: General: comfortable and no acute distress Other: More alert, easily conversable today. HENMT: General nose exam: Normal nares present and no epistaxis Mouth: Yes moist mucous membranes Eyes: General: appearance normal, both eyes and all related structures Neck: Neck: supple and no JVD Lymphatic: lymphadenopat
[2022-02-05 14:00] VITALS: BP 107/51; PULSE 68; RESP 18; TEMP 36.7; O2SAT 99
--- NOTE | 2022-02-05 15:31 | PM.CNCAR ---
Assessment and Plan Assessment and plan (1) H/O aortic valve replacement: Code(s): Z95.2 - Presence of prosthetic heart valve Status: Acute (2) Cerebrovascular accident: Code(s): I63.9 - Cerebral infarction, unspecified Status: Acute (3) New onset seizure: Code(s): R56.9 - Unspecified convulsions Status: Acute Plan 1. Given transthoracic echocardiogram findings, recommend transesophageal echocardiogram (SOY) for further evaluation of valve prosthesis. Discussed the indication of the procedure, procedure details, benefits vs. risks of procedure, and post-procedure care with the patient. Patient verbalized understanding, and he would like to proceed with SOY. 2. SOY ordered, will schedule for 9/14 AM. Patient to be NPO after midnight. 3. Given patient's hesitancy to take anticoagulation, his homelessness, and lack of following up with his medical care, it would be high-risk to discharge patient on Warfarin, and we would recommend against anticoagulation if that is the situation. NOACs have no indication for mechanical valves, therefore, Warfarin would be the only anticoagulation option for this patient; however, patient does not wish to take anticoagulation. 4. If SOY shows significant valve dysfunction, he would need to be referred to a valve center for advanced care. History of Present Illness History of Present Illness Consult date/time: 02/05/22 15:31 Requesting physician: Suzanne Burrows APN-C Consult reason: Other (Possible mechanical aortic valve dysfunction) Reason For Visit: New onset Seizure Narrative: Patient is a 51-year-old male who initially presented with a seizure-like spell. Patient has a history of aortic valve replacement (mechanical?). Patient states he underwent valve replacement in 2010 for bicuspid aortic valve dysfunction (likely stenosis), and then underwent repeat surgery in 2013 for leak around aortic valve . Patient reports surgery was done in [place]. He used to be on Warfarin initially after valve replacement, but quit taking his anticoagulation approximately 5 years ago. He states he does not wish to take anticoagulation medications. 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 There is mild regurgitation of the valve. LVEF is preserved. However, aortic valve prosthesis was not well visualized. Cardiology consulted given the echo findings. Patient is currently homeless, unsure of where he is going to be discharged to afterwards. Patient is currently considering going to a care center after discharge. Does not want to live with family. Patient denies history of chest pain, shortness of breath, palpitations, or other cardiac symptoms. CT head obtained this admission shows old infarcts involving the left thalamus, left frontal lobe, and left insula. Review of Systems Constitutional: Constitutional: Denies body ache(s), Denies chills and Denies night sweats ENT: Denies dysphagia Cardiovascular: Cardiovascular: Denies chest pain, Denies leg edema and Denies palpitations Respiratory: Respiratory: Denies cough, Denies dyspnea and Denies dyspnea on exertion Gastrointestinal: Gastrointestinal: Denies abdominal pain, Denies nausea and Denies vomiting Musculoskeletal: Musculoskeletal: Reports no additional musculoskeletal complaints Hematologic/Lymphatic: Hematologic/Lymphatic: Denies easy bleeding and Denies easy bruising PMFSH Past Medical History Medical History Anxiety Cerebrovascular accident Old infarcts noted on brain CT on 02/01/2022. Schizophrenia Valvular heart disease Status post mechanical aortic valve replacement. Surgical History Surgical History (Updated 02/05/22 @ 16:06 by Ishmael Dukes MD) History of kerrie
[2022-02-05] MEDS: WARFARIN (*PBKC) 10 MG TABLET PO (16:47)
[2022-02-05 21:30] VITALS: BP 119/80; PULSE 72; RESP 18; TEMP 37.3; O2SAT 99
[2022-02-06] VITALS (28 sets, daily range): BP systolic 100–120; BP diastolic 62–77; PULSE 50–89; RESP 9–19; TEMP 37.1–37.6; O2SAT 90–100
[2022-02-06 06:42] LABS: Basophils Percent Auto 0.7 % (0.2-1.2); Eosinophils Absolute Auto 0.4 K/mm3 (0-0.3); Eosinophils Percent Auto 9.7 % (0-4.4); Hematocrit 41.9 % (42.0-52.0); Immature Granulocyte Absolute 0.01 K/mm3 (0.00-0.031); Immature Granulocyte Percent A 0.2 % (0-0.5); Lymphocytes Absolute Auto 1.29 K/mm3 (0.9-3.2); Lymphocytes Percent Auto 29.9 % (18.3-44.2); Mean Corpuscular HGB Conc 33.4 g/dl (32-36); Mean Corpuscular Hemoglobin 29.7 pg (26-34); Mean Corpuscular Volume 88.8 fl (80-100); Mean Platelet Volume 10.3 fl (7.4-10.4); Monocytes Absolute Auto 0.6 K/mm3 (0.1-0.6); Neutrophils Percent Auto 46.5 % (45.5-73.1); Platelet Count Result 189 k/mm3 (150-375); Red Blood Count 4.72 M/mm3 (4.6-6.20); Red Cell Distribution Width 13.2 % (11.5-14.5); White Blood Count 4.3 K/mm3 (4.5-10.0)
[2022-02-06 06:57] LABS: INR 2.1; Prothrombin Time 22.9 Seconds (11.1-14.7)
[2022-02-06 06:58] LABS: Alanine Aminotransferase 31 U/L (6-50); Albumin Level 3.5 g/dL (3.5-5.1); Alkaline Phosphatase 43 U/L (38-126); Anion Gap 6 mmol/L (8-16); Aspartate Amino Transferase 53 U/L (17-59); Bilirubin,Total 0.2 mg/dL (0.2-1.3); Blood Urea Nitrogen 11 mg/dL (9-20); Calcium 8.6 mg/dL (8.4-10.2); Carbon Dioxide 28 mmol/L (22-30); Chloride 104 mmol/L (98-107); Estimated CRCL calculation 80 ml/min; Estimated Glomerular Filt Rate > 60; Glucose 102 mg/dL (65-110); Potassium 3.7 mmol/L (3.4-5.0); Sodium 138 mmol/L (137-145)
--- NOTE | 2022-02-06 08:57 | WPDMODSED ---
Moderate Sedation Note-Pt Data Patient Data Diagnosis: Possible aortic valve prosthesis obstruction Present Complaint: Possible aortic valve prosthesis obstruction Procedure to be performed/Plan: Transesophageal Echocardiogram Allergies Allergy/AdvReac Type Severity Reaction Status Date / Time No Known Allergies Allergy Verified 02/06/22 08:47 Home Medications Medication Instructions Recorded Confirmed Type No Home Medications 02/01/22 02/01/22 History Current Medications: Active Medications Enoxaparin Sodium (Enoxaparin 80 Mg/0.8 Ml Syringe) 70 mg SUB-Q Q12HR COUNT INCLUDES THE [facility] Last Admin: 02/05/22 20:18 Dose: 70 mg Risperidone (Risperidone 1 Mg Tablet) 1 mg PO Q12HR COUNT INCLUDES THE [facility] Last Admin: 02/05/22 20:18 Dose: 1 mg Warfarin Sodium (Warfarin (*Pbkc) 10 Mg Tablet) 10 mg PO DAILY@1700 COUNT INCLUDES THE [facility] Last Admin: 02/05/22 16:47 Dose: 10 mg Sedation/Anesthesia: No previous sedation/anesthesia problems (including family history). [facility] Past Medical History Medical History Anxiety Cerebrovascular accident Old infarcts noted on brain CT on 02/01/2022. Schizophrenia Valvular heart disease Status post mechanical aortic valve replacement. Surgical History Surgical History History of mechanical aortic valve replacement Family History Family History Other Family history unknown Social History Social History Social History: Surrogate medical decision maker: Dominick Pacheco (brother) or Traci Pacheco (sister in law). Code status: full code. Smoking status: Never smoker Alcohol intake: current Drinks per week: 1 Substance use: never Additional living arrangements comments: Recently moved to [place] from [place] to be closer to family. 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 Spiritual care concerns: No Mod Sed Physical Exam Physical Exam Pre Procedural Exam: Normal: Appearance, Lungs, Heart Rate, Heart Rhythm, Abdomen, Extremities and Skin Hours since solid foods: 14 Hours since liquid intake: 14 Mallampati Classification: class II Internal Medicine - PN: Obj Da Vital Signs Vital Signs: Vital Signs - 24 hr 02/05/22 14:00 02/05/22 20:23 02/05/22 21:30 Temperature 36.7 C 37.3 C Pulse Rate 68 72 Respiratory Rate 18 18 Blood Pressure 107/51 L 119/80 Pulse Oximetry 99 99 Oxygen Delivery Room Air Oxygen Flow Rate 02/06/22 08:48 02/06/22 08:53 Temperature 37.3 C Pulse Rate 57 L 62 Respiratory Rate 14 13 Blood Pressure 103/62 103/62 Pulse Oximetry 98 100 Oxygen Delivery Room Air Nasal Cannula Oxygen Flow Rate 2 Intake/Output Intake/Output: Intake & Output 02/03/22 02/04/22 02/05/22 02/06/22 23:59 23:59 23:59 23:59 Intake Total 2240 1700 2270 240 Output Total 600 Balance 1640 1700 2270 240 Meds/Results Medications: Active Medications Generic Name Dose Route Start Last Admin Trade Name Freq PRN Reason Stop Dose Admin Enoxaparin Sodium 70 mg 02/01/22 23:15 02/05/22 20:18 Enoxaparin 80 Mg/0.8 Ml Syringe SUB-Q 70 mg Q12HR HOMERO Administration Risperidone 1 mg 02/03/22 21:00 02/05/22 20:18 Risperidone 1 Mg Tablet PO 1 mg Q12HR HOMERO Administration Warfarin Sodium 10 mg 02/04/22 17:00 02/05/22 16:47 Warfarin (*Pbkc) 10 Mg Tablet PO 10 mg DAILY@1700 HOMERO Administration Radiology Results: ITS Impressions Head CT 02/01/22 11:08 IMPRESSION: 1. Old infarcts involving the left thalamus, left frontal lobe, and left insula. Chest X-Ray 02/01/22 11:11 IMPRESSION: 1. Emphysema. Chest CTA 02/01/22 12:41 IMPRESSION: 1. No pulmonary embolism or acute cardiopulmonary abnormality. TTE 02/04/2022: Summary ? 1. Left ventricular chamber dimension is normal. ? 2
--- NOTE | 2022-02-06 10:27 | P.PCNTEE_ITS ---
SOY TransEsophageal Echocardiogram Date of procedure: 02/06/22 Procedure Type: Transesophageal echocardiogram with bubble study Moderate sedation Diagnosis: Suspected significant stenosis of aortic valve prosthesis Indications: Suspected significant stenosis of aortic valve prosthesis Image Quality: Adequate Findings: PRELIMINARY FINDINGS: 1. Significant obstruction of mechanical aortic valve prosthesis with severe bi- leaflet restriction. Leaflet thickening noted. Small mobile material noted on the aortic side of leaflets, cannot rule out thrombus or vegetation. Trace aortic regurgitation. Prosthesis is well-seated, no dehiscence noted. No paravalvular regurgitation noted. 2. Preserved left ventricular ejection fraction. 3. No left atrial appendage thrombus. 4. Negative bubble study. 5. No other significant valvular disease noted. Conclusions: As above. Formal SOY report pending.
[2022-02-06 10:32] LABS: Red Blood Cell Folate 815 ng/mL RBC (>280)
--- NOTE | 2022-02-06 10:37 | SUR.PHASEII ---
patient's right iv site dressing is jail removed and i/v was dangling and endangered of getting accidently removed. upon changing the dressing nurse notice the site by the cathlon hub was white, masserated and had a small hole from the hub. i/v was inserted on the 9 per the floor's documentation. maddie iv nurse called and made aware, and wound care called and made aware. I let dr velasquez know about the infected iv site as the patient has endocarditis and will be getting blood cultures drawn.
--- NOTE | 2022-02-06 10:49 | SUR.PHASEII ---
report called to milly lang. will transport patient back to room on stretcher
--- NOTE | 2022-02-06 11:51 | WPDNEUROPN ---
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 followed by the transesophageal echocardiogram which documented significant obstruction mechanical aortic valve prosthesis with severe by live fluid restriction and thickness and small mobile material on the aortic valve leaflet which could not be differentiated with a Petterchak thrombus or vegetation, obviously patient will benefit from further surgical intervention and will be transferred to the tertiary care such on examination today he remains awake alert cooperative in no obvious acute distress his speech nor dysphasic no dysarthric not dysphonic, motor examination revealed no motor focal deficit reflexes symmetrical and plantars downgoing Objective Data Vital Signs Vital Signs: Vital Signs - 24 hr 02/05/22 14:00 02/05/22 20:23 02/05/22 21:30 Temperature 36.7 C 37.3 C Pulse Rate 68 72 Respiratory Rate 18 18 Blood Pressure 107/51 L 119/80 Pulse Oximetry 99 99 Oxygen Delivery Room Air Oxygen Flow Rate 02/06/22 08:48 02/06/22 08:53 02/06/22 09:00 Temperature Pulse Rate 57 L 62 54 L Respiratory Rate 14 13 19 Blood Pressure 103/62 103/62 103/62 Pulse Oximetry 98 100 100 Oxygen Delivery Room Air Nasal Cannula Nasal Cannula Oxygen Flow Rate 2 2 02/06/22 09:09 02/06/22 09:12 02/06/22 09:16 Temperature Pulse Rate 75 54 L 54 L Respiratory Rate 17 10 L 10 L Blood Pressure 115/71 111/74 107/69 Pulse Oximetry 97 97 100 Oxygen Delivery Nasal Cannula Nasal Cannula Nasal Cannula Oxygen Flow Rate 2 3 3 02/06/22 09:18 02/06/22 09:22 02/06/22 09:25 Temperature Pulse Rate 53 L 54 L 53 L Respiratory Rate 10 L 10 L 11 L Blood Pressure 108/72 105/68 100/68 Pulse Oximetry 100 100 100 Oxygen Delivery Nasal Cannula Nasal Cannula Nasal Cannula Oxygen Flow Rate 3 3 3 02/06/22 09:27 02/06/22 09:30 02/06/22 09:48 Temperature Pulse Rate 54 L 50 L 59 L Respiratory Rate 10 L 10 L 10 L Blood Pressure 105/69 104/68 118/77 Pulse Oximetry 100 100 100 Oxygen Delivery Nasal Cannula Nasal Cannula Nasal Cannula Oxygen Flow Rate 3 3 3 02/06/22 09:33 02/06/22 09:36 09/14/22 09:39 Temperature Pulse Rate 52 L 61 52 L Respiratory Rate 9 L 17 13 Blood Pressure 105/67 102/66 107/72 Pulse Oximetry 100 100 100 Oxygen Delivery Nasal Cannula Nasal Cannula Nasal Cannula Oxygen Flow Rate 3 3 3 02/06/22 09:42 02/06/22 09:45 02/06/22 09:51 Temperature Pulse Rate 52 L 50 L 54 L Respiratory Rate 13 10 L 13 Blood Pressure 112/68 120/71 114/70 Pulse Oximetry 100 100 100 Oxygen Delivery Nasal Cannula Nasal Cannula Nasal Cannula Oxygen Flow Rate 3 3 3 02/06/22 09:53 02/06/22 10:04 02/06/22 09:57 Temperature Pulse Rate 54 L 58 L 52 L Respiratory Rate 13 13 12 Blood Pressure 111/73 111/63 111/73 Pulse Oximetry 100 100 100 Oxygen Delivery Nasal Cannula Nasal Cannula Nasal Cannula Oxygen Flow Rate 3 3 3 02/06/22 10:01 02/06/22 10:15 02/06/22 10:44 Temperature Pulse Rate 60 62 52 L Respiratory Rate 11 L 16 12 Blood Pressure 111/63 111/63 105/66 Pulse Oximetry 100 98 98 Oxygen Delivery Nasal Cannula Room Air Room Air Oxygen Flow Rate 3 02/06/22 10:49 Temperature Pulse Rate 60 Respiratory Rate 16 Blood Pressure 102/75 Pulse Oximetry 98 Oxygen Delivery Room Air Oxygen Flow Rate Intake/Output Intake/Output: Intake & Output 02/03/22 02/04/22 02/05/22 02/06/22 23:59 23:59 23:59 23:59 Intake Total 2240 1700 2270 240 Output Total 600 Balance 1640 1700 2270 240 Meds/Results Medications: Active Medications Generic Name Dose Route Start Last Admin Trade Name Freq PRN Reason Stop Dose Admin Enoxaparin Sodium 70 mg 02/01/22 23:15 02/05/22 20:18 Enoxaparin 80 Mg/0.8 Ml Syringe SUB-Q 70 mg Q12HR HOMERO Administration Risperidone 1 mg 02/03/22 21:00 02/05/22 20:18 Risperidone 1
--- NOTE | 2022-02-06 14:24 | PM.PNCARD ---
Progress Note: A&P Assessment and Plan (1) H/O aortic valve replacement: Code(s): Z95.2 - Presence of prosthetic heart valve Status: Acute (2) Cerebrovascular accident: Code(s): I63.9 - Cerebral infarction, unspecified Status: Acute Plan SOY successfully done today without complication. Findings as noted: 1. Significant obstruction of mechanical aortic valve prosthesis with severe bi-leaflet restriction. Leaflet thickening noted. Small mobile material noted on the aortic side of leaflets, cannot rule out thrombus or vegetation. Trace aortic regurgitation. Prosthesis is well-seated, no dehiscence noted. No paravalvular regurgitation noted. 2. Preserved left ventricular ejection fraction. 3. No left atrial appendage thrombus. 4. Negative bubble study. 5. No other significant valvular disease noted. 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 Patient remains stable from a cardiac standpoint without any cardiac symptoms. As such, patient needs to be on long-term Warfarin therapy with goal INR of 2-3. Discussed extensively with the patient regarding SOY findings, the indication for Warfarin therapy, and the risks if he does not take anticoagulation. Recommend patient go to a care center to increase compliance with his mediations and follow-up with his medical care. Patient's case was discussed with Dr. Forrest Brewer (CT Surgeon at [facility]), and as patient is stable from a cardiac standpoint and remains asymptomatic, he does not require urgent intervention for his valve. Patient will be scheduled for close outpatient follow-up with Dr. Brewer. Although patient does not have any clinical signs/symptoms of infection, given his SOY findings, recommend obtaining blood cultures to rule out endocarditis. Obtain daily INRs. Adjust Warfarin dose to keep INR between 2-3.? Time Spent With Patient Time with patient: Greater than 35 minutes Subjective Date/time seen: 02/06/22 14:24 Interval history: No acute events overnight. Patient remains NPO for SOY this morning, last ate at 7PM last night. Denies any cardiac symptoms. Review of Systems Constitutional: Constitutional: Denies body ache(s), Denies chills and Denies night sweats ENT: Denies dysphagia Cardiovascular: Cardiovascular: Reports no additional cardiovascular complaints, Denies chest pain, Denies leg edema and Denies palpitations Respiratory: Respiratory: Denies dyspnea Gastrointestinal: Gastrointestinal: Denies abdominal pain Exam Narrative: Const:?? General: comfortab le; No no acute di stress HENMT:?? Mouth: Yes moist m ucous membranes Eyes:?? General: appearanc e normal, both eye s and all related structures Neck:?? Neck: supple and N o no JVD Resp:?? Effort & Inspectio n: normal respirat ory effort? Auscul tation: clear to a uscultation bilate rally, no crackles and no wheezes Cardio:?? Rate: regular rate ? Rhythm: regular rhythm? Other: +S oft mechanical cli ck GI:?? Inspection: non-di stended? GI Palp: Yes Soft to palpat ion and No Tendern ess to palpation p resent (GI) Skin:?? General skin exam: normal color and no rashes or lesio ns noted Neuro:?? Speech: normal spe ech Extrem:?? General: no edema Objective Data Vital Signs Vital Signs: Vi
--- NOTE | 2022-02-06 14:40 | PM.IMPN ---
Progress Note: A&P Assessment and Plan (1) New onset seizure: Code(s): R56.9 - Unspecified convulsions Status: Acute Assessment and Plan: - Witnessed episode. - CT of brain demonstrates three areas of the brain that have areas of old, chronic infarct. - MRI unable to be performed as patient has a mechanical heart valve. - EEG performed and negative. - Dr. Keita following and managing- Recommends patient be on anticoagulation for his high risk of CVA. However, pt. must have usp supervision to ensure that he is taking it appropriately. Care Coordination following. - No anti-epileptic meds at this time. - continue Seizure precautions - draw a prolactin level within 20 minutes if seizure noted. (2) Valvular heart disease: Code(s): I38 - Endocarditis, valve unspecified Status: Acute Assessment and Plan: Hx of mechanical AVR for endocarditis. patient has not been taking his Coumadin for approximately 5 years, he is homeless. patient also previously reported not taking anticoagulation due to a changes to personality, way to be monitored by the team . -INR was subtherapeutic on admission 1.0 -continue Lovenox bridging with times 24 hours once INR therapeutic, 02/06 INR 2.1, can likely stop Lovenox tomorrow morning - warfarin dose 10 mg daily, will need adjustments per INR results - Cardiology consulted and appreciate recommendations. - 02/04/2022 Transthoracic echocardiogram as performed and demonstrates a hyperdynamic left ventricular systolic function with EF >70%. He does have a grade 2 diastolic dysfunction. 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 There is again a statement that the prosthetic valve in the aortic position is not well visualized and a SOY is recommended. - patient underwent SOY on 02/06 noting significant obstruction of mechanical aortic valve prosthesis with severe bileaflet restriction, leaflets thickening noted, small mobile material noted to the aortic side of leaflets suggesting thrombus versus vegetation, trace aortic regurgitation, prosthesis well seated without dehiscence. Patient has preserved ejection fraction and negative bubble study. - patient has been counseled repeatedly about warfarin use and has been notified of SOY results as well as the risks of medication noncompliance. Given patient has mechanical valve NOAC are not appropriate as they do not have indication for use in this patient population. Patient reports to me today, 02/06/2022 he stopped his warfarin therapy because of concerns for thin blood . He has mixed feelings regarding systemic medications, however he does endorse understanding of risks associated with poor compliance. Patient has been taking his warfarin and Lovenox injections for the past 48 hours And endorses he will continue medication at discharge. -02/06 draw blood cultures x2 to rule out sepsis and concern for possible aortic valve vegetation -patient will close outpatient follow-up with cardiothoracic team, Dr. Brewer at [facility] upon discharge (3) Schizophrenia: Code(s): F20.9 - Schizophrenia, unspecified Status: Acute Assessment and Plan: - patient has previously been taking risperidone all 0.5 mg per day per family and has done well - Dr. Bailey, psychiatry, was consulted and appreciate the recommendations. -Patient started on risperidone 1 mg p.o. b.i.d. the patient is currently taking this medication. Patient does not appear to have disorganized thinking or speech content suggestive of delusions. Continue current medication. - Care coordination is consulted assisting with placement - mini-mental scores 24/30 and 26/30 - tentative plans for discharge to [facility] when stable for discharge, of note Dr. Bailey does have privileges at this facility and can continue to follow with him outpatient Plan code status: Full code Disposition: Discharge to SNF facility Possible discharge in 1
[2022-02-06] MEDS: ENOXAPARIN 80 MG/0.8 ML SYRINGE 70 MG SUB-Q ×2 (15:39→19:59)
[2022-02-06] MEDS: WARFARIN (*PBKC) 10 MG TABLET PO (18:00)
[2022-02-06] MEDS: risperiDONE 1 MG TABLET PO (19:59)
[2022-02-07 05:44] VITALS: BP 100/56; PULSE 54; RESP 16; TEMP 36.6; O2SAT 99
[2022-02-07 06:47] LABS: INR 2.5
[2022-02-07 08:00] VITALS: PULSE 59; RESP 12; O2SAT 99
[2022-02-07] MEDS: ENOXAPARIN 80 MG/0.8 ML SYRINGE 70 MG SUB-Q (09:24)
[2022-02-07] MEDS: SILVERGEL (ELTA) 45 ML 1 APPLIC TOPICAL (09:24)
[2022-02-07] MEDS: risperiDONE 1 MG TABLET PO ×2 (09:24→20:00)
[2022-02-07 14:00] VITALS: BP 110/67; PULSE 59; RESP 12; TEMP 36.6; O2SAT 99
--- NOTE | 2022-02-07 14:22 | PM.IMPN ---
Progress Note: A&P Assessment and Plan (1) New onset seizure: Code(s): R56.9 - Unspecified convulsions Status: Acute Assessment and Plan: - Witnessed episode. - CT of brain demonstrates three areas of the brain that have areas of old, chronic infarct. - MRI unable to be performed as patient has a mechanical heart valve. - EEG performed and negative. - Dr. Keita following and managing- Recommends patient be on anticoagulation for his high risk of CVA. However, pt. must have nursing home supervision to ensure that he is taking it appropriately. Care Coordination following. - No anti-epileptic meds at this time. - continue Seizure precautions - draw a prolactin level within 20 minutes if seizure noted. 02/07/22 No seizure activity since admission. (2) Valvular heart disease: Code(s): I38 - Endocarditis, valve unspecified Status: Acute Assessment and Plan: Hx of mechanical AVR for endocarditis. patient has not been taking his Coumadin for approximately 5 years, he is homeless. patient also previously reported not taking anticoagulation due to a changes to personality, way to be monitored by the team . -INR was subtherapeutic on admission 1.0 -continue Lovenox bridging with times 24 hours once INR therapeutic, 02/06 INR 2.1, can likely stop Lovenox tomorrow morning - warfarin dose 10 mg daily, will need adjustments per INR results - Cardiology consulted and appreciate recommendations. - 02/04/2022 Transthoracic echocardiogram as performed and demonstrates a hyperdynamic left ventricular systolic function with EF >70%. He does have a grade 2 diastolic dysfunction. 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 There is again a statement that the prosthetic valve in the aortic position is not well visualized and a SOY is recommended. - patient underwent SOY on 02/06 noting significant obstruction of mechanical aortic valve prosthesis with severe bileaflet restriction, leaflets thickening noted, small mobile material noted to the aortic side of leaflets suggesting thrombus versus vegetation, trace aortic regurgitation, prosthesis well seated without dehiscence. Patient has preserved ejection fraction and negative bubble study. - patient has been counseled repeatedly about warfarin use and has been notified of SOY results as well as the risks of medication noncompliance. Given patient has mechanical valve NOAC are not appropriate as they do not have indication for use in this patient population. Patient reports to me today, 02/06/2022 he stopped his warfarin therapy because of concerns for thin blood . He has mixed feelings regarding systemic medications, however he does endorse understanding of risks associated with poor compliance. Patient has been taking his warfarin and Lovenox injections for the past 48 hours And endorses he will continue medication at discharge. -02/06 draw blood cultures x2 to rule out sepsis and concern for possible aortic valve vegetation -02/07/22 INR 2.5, stop lovenox, decrease warfarin 5 mg daily for concern of supratherapeutic INR with current dose. Repeat INR tomorrow. Blood cultures negative to date. -patient will close outpatient follow-up with cardiothoracic team, Dr. Brewer at [facility] upon discharge (3) Schizophrenia: Code(s): F20.9 - Schizophrenia, unspecified Status: Acute Assessment and Plan: - patient has previously been taking risperidone all 0.5 mg per day per family and has done well - Dr. Bailey, psychiatry, was consulted and appreciate the recommendations. -Patient started on risperidone 1 mg p.o. b.i.d. the patient is currently taking this medication. Patient does not appear to have disorganized thinking or speech content suggestive of delusions. Continue current medication. - Care coordination is consulted assisting with placement - mini-mental scores 24/30 and 26/30 - 02/07/22 stable. continue current plan of care. - tentative aguila
--- NOTE | 2022-02-07 15:04 | WPDTEECHO ---
SOY TransEsophageal Echocardiogram Date of procedure: 02/07/22 Procedure Type: Date of Procedure: February 06, 2022 Brief History Of Present Illness: Patient is a pleasant 51-year-old male with a history of mechanical aortic valve replacement in 2010 who is referred for transesophageal echocardiogram for further evaluation for suspected prosthetic valve dysfunction. Procedure In Detail: After verbal and written informed consent was obtained, the patient risks, benefits, and alternatives explained in detail. The patient agreed to proceed with the plan of care as outlined above.?The patient was evaluated at bedside in the [facility] procedure room.?The posterior oropharynx, neck, and jaw angle all within normal limits on examination. Lungs were clear to auscultation. See pre-sedation note for further details. The patient was then placed in the appropriate 30 to 45 degree angle supine position at a slight left lateral decubitus position.?Patient was monitored throughout the study with telemetry, oxygen saturation, end-tidal CO2 monitoring, blood pressure, heart rate, and respirations.? The posterior hypopharynx was then locally anesthetized using repeated administration of Hurricaine spray as well as gargled viscous lidocaine.? After local anesthetic of the posterior hypopharynx was achieved and the oral bite block placed, moderate sedation was administered.? After confirmation of adequate moderate sedation, the transesophageal echocardiogram probe was advanced through the oral bite block into the posterior hypopharynx and into the esophagus easily and without complication.? Multiple, multiplanar echocardiographic images were obtained in multiple standard projections.? Pulsed wave, continuous-wave, and color-flow Doppler were utilized in conjunction with this study.? At the conclusion of the study, the transesophageal echocardiogram probe was removed easily and without complication.? The patient tolerated the procedure well without difficulty.? Patient was in sinus rhythm throughout the study. Moderate Sedation/Anesthesia administration: Patient reports no prior problems with sedation/anesthesia. Please see pre-sedation noted for physical examination documentation. As noted above, after adequate local anesthesia of the posterior hypopharynx was achieved, a total of 4 mg intravenous Versed and a total of 100 mcg intravenous Fentanyl in multiple divided doses was administered for moderate sedation.? Sedation start time was 0907 and end time was 1000 for a total intra-service/procedure face-face time of 53 minutes.? Sedation was administered by a qualified/certified observer?Rylie CONTRERAS under my supervision with intra-procedure drib-es-waet observation and management throughout the entirety of the procedure.? There were no other issues or complications and patient tolerated the procedure well. See post-anesthesia documentation. FINDINGS: LEFT VENTRICLE: Normal size of left ventricle. Mildly increased left ventricular wall thickness. Left ventricular ejection fraction is normal at 60-65%. RIGHT VENTRICLE:? Size and systolic function within normal limits. LEFT ATRIUM: Normal size. RIGHT ATRIUM: Normal size. INTERATRIAL SEPTUM: ? Interatrial septum is anatomically normal without evidence of shunt with color-flow Doppler nor with injection of agitated saline. MITRAL VALVE: ? Mitral valve is anatomically normal with preserved leaflet excursion and trace regurgitation. AORTIC VALVE: Mechanical aortic valve is well seated, no evidence of dehiscence. Significant obstruction of mechanical aortic valve prosthesis with severe bi-leaflet restriction. Leaflet thickening noted. Small mobile material noted on the aortic side of leaflets, cannot rule out thrombus or vegetation. Trace aortic regurgitation. TRICUSPID VALVE: The tricuspid valve is anatomically normal with normal leaflet excursion with trivial regurgitation identified.? No mobile elements identified. PULMONI
[2022-02-07] MEDS: WARFARIN (*PBKC) 5 MG TABLET PO (17:46)
[2022-02-07 21:30] LABS: Vitamin D 1,25 (OH)2 Total 52 pg/mL (18-72); Vitamin D2 1,25 (OH)2 <8 pg/mL; Vitamin D3 1,25 (OH)2 52 pg/mL
[2022-02-07 21:48] VITALS: BP 109/55; PULSE 68; RESP 18; TEMP 36.4; O2SAT 100
[2022-02-08 05:55] VITALS: BP 104/71; PULSE 50; RESP 16; TEMP 36.2; O2SAT 99
[2022-02-08 07:59] LABS: INR 2.2; Prothrombin Time 23.7 Seconds (11.1-14.7)
[2022-02-08] MEDS: risperiDONE 1 MG TABLET PO (08:00)
[2022-02-08] MEDS: SILVERGEL (ELTA) 45 ML 1 APPLIC TOPICAL (08:01)
--- NOTE | 2022-02-08 08:30 | PM.PNCARD ---
Progress Note: A&P Assessment and Plan (1) H/O aortic valve replacement: Code(s): Z95.2 - Presence of prosthetic heart valve Status: Acute Assessment and Plan: SOY on 02/06/22 showing significant obstruction of mechanical aortic valve prosthesis with severe bi-leaflet restriction. Leaflet thickening noted. Small mobile material noted on the aortic side of leaflets, cannot rule out thrombus or vegetation. Trace aortic regurgitation. Prosthesis is well-seated, no dehiscence noted. No paravalvular regurgitation noted. Anticoagulation with warfarin recommended with target INR 2.0 - 3.0. Patient stable and asymptomatic. Has established follow up with Dr. Brewer. Blood cultures NGTD. (2) Cerebrovascular accident: Code(s): I63.9 - Cerebral infarction, unspecified Status: Acute Subjective Date/time seen: 02/08/22 08:30 Cardiology follow up Feeling well this morning and does not have any complaints. Reviewed results of SOY with patient and reinforced importance of absolute compliance with warfarin. Review of Systems Constitutional: Constitutional: Denies body ache(s), Denies chills and Denies night sweats ENT: Denies dysphagia Cardiovascular: Cardiovascular: Reports no additional cardiovascular complaints, Denies chest pain, Denies leg edema, Denies palpitations, Denies dyspnea and Denies dyspnea on exertion Respiratory: Respiratory: Denies cough, Denies dyspnea and Denies dyspnea on exertion Gastrointestinal: Gastrointestinal: Denies abdominal pain, Denies dysphagia, Denies nausea and Denies vomiting Musculoskeletal: Musculoskeletal: Reports no additional musculoskeletal complaints Endocrine: Endocrine: Denies palpitations Hematologic/Lymphatic: Hematologic/Lymphatic: Denies easy bleeding and Denies easy bruising Exam Narrative: Const:?? General: comfortab le; No no acute di stress HENMT:?? Mouth: Yes moist m ucous membranes Eyes:?? General: appearanc e normal, both eye s and all related structures Neck:?? Neck: supple and N o no JVD Resp:?? Effort & Inspectio n: normal respirat ory effort? Auscul tation: clear to a uscultation bilate rally, no crackles and no wheezes Cardio:?? Rate: regular rate ? Rhythm: regular rhythm? Other: +S oft mechanical cli ck GI:?? Inspection: non-di stended? GI Palp: Yes Soft to palpat ion and No Tendern ess to palpation p resent (GI) Skin:?? General skin exam: normal color and no rashes or lesio ns noted Neuro:?? Speech: normal spe ech Extrem:?? General: no edema Const: General: comfortable; No no acute distress HENMT: Mouth: Yes moist mucous membranes Eyes: General: appearance normal, both eyes and all related structures Neck: Neck: supple and No no JVD Resp: Effort & Inspection: normal respiratory effort Auscultation: clear to auscultation bilaterally, no crackles and no wheezes Cardio: Rate: regular rate Rhythm: regular rhythm Other: +Soft mechanical click GI: Inspection: non-distended Skin: General skin exam: normal color and no rashes or lesions noted Neuro: Speech: normal speech Extrem: General: no edema Objective Data Vital Signs Vital Signs: Vital Signs - 24 hr 02/07/22 14:00 02/07/22 20:00 02/07/22 21:48 Temperature 36.6 C 36.4 C Pulse Rate 59 L 68 Respiratory Rate 12 18 Blood Pressure 110/6
--- NOTE | 2022-02-08 10:00 | PM.DS ---
DS: Admitting Diagnosis Discharge Date 02/08/22 1000 Admitting Diagnosis New onset seizure DS: Discharge Diagnosis Discharge Diagnosis (1) New onset seizure: Code(s): R56.9 - Unspecified convulsions Status: Acute Assessment and Plan: - Witnessed episode. - CT of brain demonstrates three areas of the brain that have areas of old, chronic infarct. - MRI unable to be performed as patient has a mechanical heart valve. - EEG performed and negative. - Dr. Keita following and managing- Recommends patient be on anticoagulation for his high risk of CVA. However, pt. must have [facility] supervision to ensure that he is taking it appropriately. Care Coordination following. - No anti-epileptic meds at this time. - continue Seizure precautions - draw a prolactin level within 20 minutes if seizure noted. 02/07/22 No seizure activity since admission. (2) Valvular heart disease: Code(s): I38 - Endocarditis, valve unspecified Status: Acute Assessment and Plan: Hx of mechanical AVR for endocarditis. patient has not been taking his Coumadin for approximately 5 years, he is homeless. patient also previously reported not taking anticoagulation due to a changes to personality, way to be monitored by the team . -INR was subtherapeutic on admission 1.0 -continue Lovenox bridging with times 24 hours once INR therapeutic, 02/06 INR 2.1, can likely stop Lovenox tomorrow morning - warfarin dose 10 mg daily, will need adjustments per INR results - Cardiology consulted and appreciate recommendations. - 02/04/2022 Transthoracic echocardiogram as performed and demonstrates a hyperdynamic left ventricular systolic function with EF >70%. He does have a grade 2 diastolic dysfunction. 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 There is again a statement that the prosthetic valve in the aortic position is not well visualized and a SOY is recommended. - patient underwent SOY on 02/06 noting significant obstruction of mechanical aortic valve prosthesis with severe bileaflet restriction, leaflets thickening noted, small mobile material noted to the aortic side of leaflets suggesting thrombus versus vegetation, trace aortic regurgitation, prosthesis well seated without dehiscence. Patient has preserved ejection fraction and negative bubble study. - patient has been counseled repeatedly about warfarin use and has been notified of SOY results as well as the risks of medication noncompliance. Given patient has mechanical valve NOAC are not appropriate as they do not have indication for use in this patient population. Patient reports to me today, 02/06/2022 he stopped his warfarin therapy because of concerns for thin blood . He has mixed feelings regarding systemic medications, however he does endorse understanding of risks associated with poor compliance. Patient has been taking his warfarin and Lovenox injections for the past 48 hours And endorses he will continue medication at discharge. -02/06 draw blood cultures x2 to rule out sepsis and concern for possible aortic valve vegetation -02/07/22 INR 2.5, stop lovenox, decrease warfarin 5 mg daily for concern of supratherapeutic INR with current dose. Repeat INR tomorrow. Blood cultures negative to date. -patient will close outpatient follow-up with cardiothoracic team, Dr. Brewer at [facility] [place] upon discharge (3) Schizophrenia: Code(s): F20.9 - Schizophrenia, unspecified Status: Acute Assessment and Plan: - patient has previously been taking risperidone all 0.5 mg per day per family and has done well - Dr. Bailey, psychiatry, was consulted and appreciate the recommendations. -Patient started on risperidone 1 mg p.o. b.i.d. the patient is currently taking this medication. Patient does not appear to have disorganized thinking or speech content suggestive of delusions. Continue current medication. - Care coordination is consulted assisting with placement -
[2022-02-08 13:19] LABS: EDCOVIDSCREEN Negative (Negative)
[2022-02-08 14:00] VITALS: BP 93/64; PULSE 61; RESP 16; TEMP 37.3; O2SAT 99
[2022-02-08] MEDS: levETIRAcetam 500 MG TABLET PO (14:06)
--- NOTE | 2022-02-08 16:19 | PC.NURSE ---
Called report to [facility] @ [phone] and spoke with Elly.
== END 2022-02-08 16:10 | DRG 53 ==
LOC: ANHED 13:49 → ANH3MEDSUR 15:46
PROVIDERS: Internal Medicine; Nurse Practitioner Adult Health; Nurse Practitioner Family; Physician Assistant; Psychiatry & Neurology Psychiatry; Admitting Provider Chiropractor; Emergency Provider Nurse Practitioner Family; Visit Provider Nurse Practitioner
PROC: B246ZZ4 Ultrasonography of Right and Left Heart, Transesophageal (ICD-10-PCS; CPT 93312; principal; 2022-02-06 09:00)
DX: R56.9 Unspecified convulsions (principal); F20.9 Schizophrenia, unspecified; I38 Endocarditis, valve unspecified; T82.857A Stenosis of other cardiac prosthetic devices, implants and grafts, initial encounter; F41.9 Anxiety disorder, unspecified; Z20.822 Contact with and (suspected) exposure to COVID-19; Z91.14 Patient's other noncompliance with medication regimen; Z95.2 Presence of prosthetic heart valve; Z86.73 Personal history of transient ischemic attack (TIA), and cerebral infarction without residual deficits; Z59.00 Homelessness unspecified
CPT/HCPCS: 36415; 70450; 71046; 71275; 80048; 80053; 80061; 80074; 80307; 81001; 82607; 82652; 82747; 83735; 84443; 84484; 85025; 85027; 85380; 85610; 85730; 86592; 86703; 87040; 87426; 93005; 93306; 93312; 93320; 93325; 95816; 96360; 96361; 96365; 96372; 96375; 99285; A9270; C9803; G0378; G0432; J1650; J1953; J2060; J2250; J3010; J7030; J7040; Q9967